=== PATIENT | female | born 1990 | race Caucasian/White ===

== ENCOUNTER 2022-10-06 10:50 | Emergency (ER) | payer BC ==
[2022-10-06 11:37] LABS: BASOPHILS ABSOLUTE AUTO 0.05 K/mm3 (0.01-0.08); BASOPHILS PERCENT AUTO 0.8 % (0.1-1.2); EOSINOPHILS ABSOLUTE AUTO 0.12 K/mm3 (0.04-0.36); EOSINOPHILS PERCENT AUTO 1.8 (0.7-5.8); HEMATOCRIT 42.5 % (34.1-44.9); HEMOGLOBIN 14.3 gm/dl (11.2-15.7); IMMATURE GRAN ABSOLUTE AUTO 0.01 K/mm3 (0.00-0.10); IMMATURE GRAN PERCENT AUTO 0.2 % (<=1.0); LYMPHOCYTES ABSOLUTE AUTO 1.62 K/mm3 (1.18-3.74); LYMPHOCYTES PERCENT AUTO 24.9 % (19.3-51.7); MEAN CORPUSCULAR HEMOGLOBIN 29.7 pg (25.6-32.2); MEAN CORPUSCULAR HGB CONC 33.6 g/dl (32.2-35.5); MEAN CORPUSCULAR VOLUME 88.4 fl (79.4-94.8); MEAN PLATELET VOLUME 8.4 fl (9.4-12.3); MONOCYTES ABSOLUTE AUTO 0.59 K/mm3 (0.24-0.36); MONOCYTES PERCENT AUTO 9.1 % (4.7-12.5); NEUTROPHILS ABSOLUTE AUTO 4.12 K/mm3 (1.56-6.13); NEUTROPHILS PERCENT AUTO 63.2 % (34.0-71.1); PLATELET COUNT,PLT 290 K/mm3 (182-369); RED BLOOD CELL COUNT 4.81 M/mm3 (3.98-5.22); WHITE BLOOD CELL COUNT,WBC 6.51 K/mm3 (3.98-10.04)
== END 2022-10-06 14:07 | disposition home or self-care (01) ==
LOC: JD.ED 10:50
DX: O20.9 Hemorrhage in early pregnancy, unspecified (principal); Z88.5 Allergy status to narcotic agent; Z91.040 Latex allergy status; Z88.6 Allergy status to analgesic agent; Z3A.08 8 weeks gestation of pregnancy
CPT/HCPCS: 36415; 76801; 76801-26; 84702; 85025; 86850; 86900; 86901; 99284

== ENCOUNTER 2024-04-30 08:12 | Emergency (ER) | payer BC, MEDICAID | END 2024-04-30 10:02 | disposition home or self-care (01) | LOC: JD.ED 08:12 | DX: O22.41 Hemorrhoids in pregnancy, first trimester (principal); Z91.040 Latex allergy status; Z88.5 Allergy status to narcotic agent; Z86.16 Personal history of COVID-19; Z3A.00 Weeks of gestation of pregnancy not specified | CPT/HCPCS: 99282 ==

== ENCOUNTER 2024-11-09 16:47 | Emergency (ER) | payer MEDICAID ==
[2024-11-09 17:36] LABS: BASOPHILS ABSOLUTE AUTO 0.0 K/mm3 (0.0-0.2); BASOPHILS PERCENT AUTO 0.6 % (0.0-1.0); EOSINOPHILS ABSOLUTE AUTO 0.1 K/mm3 (0.0-0.4); EOSINOPHILS PERCENT AUTO 1.9 % (0.0-6.0); IMMATURE GRAN ABSOLUTE AUTO 0.01 K/mm3 (0.00-0.05); IMMATURE GRAN PERCENT AUTO 0.2 % (0.0-0.4); LYMPHOCYTES ABSOLUTE AUTO 2.1 K/mm3 (1.0-4.8); LYMPHOCYTES PERCENT AUTO 34.4 % (24.0-44.0); MEAN PLATELET VOLUME 8.3 fl (9.4-12.3); MONOCYTES ABSOLUTE AUTO 0.6 K/mm3 (0.0-0.8); MONOCYTES PERCENT AUTO 9.2 % (0.0-8.0); NEUTROPHILS ABSOLUTE AUTO 3.3 K/mm3 (1.8-7.7); NEUTROPHILS PERCENT AUTO 53.7 % (41.0-71.0); NRBC ABSOLUTE 0.00 (0.00-0.02); NRBC PERCENT 0.0 % (0.0-0.2); PLATELET COUNT,PLT 293 K/mm3 (150-400); RED BLOOD CELL COUNT 4.78 M/mm3 (4.10-5.30); WHITE BLOOD CELL COUNT,WBC 6.19 K/mm3 (3.9-11.3)
[2024-11-09 17:48] LABS: INR 1.01
[2024-11-09 17:49] LABS: PTT,PARTIAL THROMBOPLSTIN TIME 25.6 SECONDS (21.7-31.4)
[2024-11-09 18:03] LABS: A/G RATIO 1.2 (1-2); ALANINE AMINOTRANSFERASE,ALT 26.0 U/L (14-59); ASPARTATE AMNIOTRANSFERASE,AST 20.0 U/L (15-37); BILIRUBIN TOTAL 0.4 mg/dL (0.2-1.0); BLOOD UREA NITROGEN,BUN 21.0 mg/dL (7-18); CARBON DIOXIDE,CO2 29.0 mEq/L (21-32); CHLORIDE,CL 104.0 mEq/L (98-107); CREATININE 0.7 mg/dL (0.55-1.02); EST CRCL DRUG DOSING (CG) 111.16 mL/min; ESTIMATED GFR 117.0 mL/min (>60); GLUCOSE RANDOM 122.0 mg/dL (70-99); POTASSIUM,K 4.2 mEq/L (3.5-5.1); PROTEIN TOTAL,TP 7.9 g/dl (6.4-8.2); SODIUM,NA 142.0 mEq/L (136-145); TROPONIN I HIGH SENSITIVITY 4.0 pg/mL (<=51)
== END 2024-11-09 20:00 | disposition home or self-care (01) ==
LOC: JD.ED 16:47
DX: J06.9 Acute upper respiratory infection, unspecified (principal); Z91.040 Latex allergy status; Z88.5 Allergy status to narcotic agent; Z88.8 Allergy status to other drugs, medicaments and biological substances; Z88.1 Allergy status to other antibiotic agents; Z86.16 Personal history of COVID-19
CPT/HCPCS: 36415; 80053; 83735; 83880; 84484; 85025; 85610; 85730; 87426-QW; 93005; 93010; 99284; 99285